=== PATIENT | male | born 1965 | race Hispanic/Latino ===

== ENCOUNTER → 2019-11-01 | Day surgery (SDC) | payer MEDICARE ==
[~2019-11-01] MED LIST: ASPIRIN325 MG PO; CRESTOR5 MG PO; EPHEDRINE SULFATE INJ 50 MG/ML VIAL ONE; FENTANYL CITRATE/PF 100MCG/2 ML INJ ONE; HYOSCYAMINE 0.125 MG TAB ONE; KETAMINE HCL INJ 50 MG/ML 10 ML VIAL ONE; LEVEMIR100 UNIT/1 SQ; LEVOTHYROXINE50 MCG PO; LISINOPRIL10 MG PO; METFORMIN HCL500 MG PO; MIDAZOLAM HCL 2 MG/2 ML VIAL ONE; NOVOLOG100 UNITS1 SQ; PRAVASTATIN SOD10 MG PO; PROPOFOL IV EMULSION 10 MG/ML 50 ML VIAL ONE
--- OUTSIDE RECORDS SUMMARY | 2019-11-01 08:09 | XMS REPORT ---
Author Author [facility] Address Unknown Phone Unavailable Care Team Providers Care Emergency Specialist Name Role Phone Unavailable Unavailable Problems This patient has no known problems. Allergies, Adverse Reactions, Alerts This patient has no known allergies or adverse reactions. Medications This patient has no known medications. Encounters Start Date/Time End Date/Time Encounter Type Admission Type Attending Clinicians Care Facility Care Department Encounter ID 2019-06-22 16:24:00 2019-06-22 16:24:00 Outpatient [id number]
--- NOTE | 2019-11-01 20:33 | Operative Report ---
DATE OF PROCEDURE: 11/01/2019 SURGEON: Lan White MD PROCEDURE: Colonoscopy with polypectomy. INDICATION FOR COLONOSCOPY: Colorectal cancer screening. MEDICATIONS: The patient was done under MAC. Please see anesthesiologist's note. PROCEDURE IN DETAIL: With the patient in the lateral decubitus position, flexible fiberoptic Olympus colonoscope was inserted into the rectum with ease and advanced all the way to the cecum. One polyp was cold snared and two polyps were cold biopsied from the cecum. The mucosa overlying the ascending appeared to be within normal limits. One polyp was hot biopsied from the transverse colon. The descending, sigmoid, and rectum appeared to be within normal limits. The scope was then retroflexed into the distal rectum and small internal hemorrhoids were noted, none of which was actively bleeding. The scope was then straightened out, it was subsequently withdrawn. The patient tolerated procedure well. IMPRESSION: 1. Cecal polyps x3, one cold snared and two cold biopsied. 2. Transverse colon polyp x1, hot biopsied. 3. Internal hemorrhoids, none actively bleeding. PLAN: Follow up histology. Initiate high-fiber, low-fat diet. Initiate high-fiber supplement. The patient might benefit from a followup colonoscopy in 3 to 5 years. Lan White MD [facility] [place] /[id number] cc: Rahul Villagomez MD
== END | disposition home or self-care (01) ==
LOC: OR 08:06
PROVIDERS: ATTEND Internal Medicine Gastroenterology
DX: Z12.11 Encounter for screening for malignant neoplasm of colon (principal); D12.0 Benign neoplasm of cecum; D12.3 Benign neoplasm of transverse colon; Z01.810 Encounter for preprocedural cardiovascular examination; K64.8 Other hemorrhoids; E11.9 Type 2 diabetes mellitus without complications; Z79.4 Long term (current) use of insulin; Z79.84 Long term (current) use of oral hypoglycemic drugs; E78.00 Pure hypercholesterolemia, unspecified; E03.9 Hypothyroidism, unspecified; Z86.73 Personal history of transient ischemic attack (TIA), and cerebral infarction without residual deficits; Z79.82 Long term (current) use of aspirin; Z71.3 Dietary counseling and surveillance; Z68.35 Body mass index [BMI] 35.0-35.9, adult
CPT/HCPCS: 36415; 45380; 45384; 45385; 82948; 88305; 93005; J2250; J2704; J3010